=== PATIENT | female | born 1965 | race Caucasian/White ===

== ENCOUNTER 2016-11-11 16:52 | Inpatient (IN) ==
[2016-11-11] MEDS ORDERED: SODIUM CHLORIDE 0.9% 1,000 ML IV STA (17:52)
[2016-11-11] MEDS ORDERED: LABETALOL 20 MG/4 ML SYRINGE IV STA (17:52)
[2016-11-11] MEDS ORDERED: ALUM/MAG/SIMETH/LIDO VISC 1:1 30 ML BOTTLE PO STA (17:52)
[2016-11-11] MEDS ORDERED: ONDANSETRON 4 MG/2 ML VIAL IV STA ×2 (17:52→20:25)
[2016-11-11] MEDS ORDERED: PANTOPRAZOLE 40 MG VIAL IV STA (17:52)
[2016-11-11] MEDS ORDERED: ALUM/MAG/SIMETH/LIDO VISC 1:1 30 ML BOTTLE PO ONE (17:58)
[2016-11-11] MEDS ORDERED: ONDANSETRON 4 MG/2 ML VIAL ONE ×2 (17:58→20:27)
[2016-11-11] MEDS ORDERED: PANTOPRAZOLE 40 MG VIAL IV ONE (17:58)
[2016-11-11] MEDS ORDERED: LABETALOL 20 MG/4 ML SYRINGE IV ONE (17:58)
[2016-11-11 18:01] LABS: Basophils % 0.5 % (0.0-0.8); Eosinophils # 0.1 10*3/uL (0.0-0.87); Eosinophils % 0.7 % (0.00-10.9); Hemoglobin 14.4 GM/DL (12.0-16.0); Immature Granulocytes % 0.2 %; Immature Granulocytes Absolute 0.02 #; Lymphocytes # 2.1 10*3/uL (1.4-4.0); Lymphocytes % 25.3 % (21.3-54.2); Mean Corpuscular HGB Conc 33.5 GM/DL (32-36); Mean Corpuscular Hemoglobin 29 PG (27-34); Mean Platelet Volume 11.1 FL (9.6-12.0); Monocytes # 0.6 10*3/uL (0.11-0.8); Monocytes % 7.4 % (1.7-12.7); Neutrophils # 5.5 10*3/uL (1.4-7.4); Neutrophils % 65.9 % (38.7-73.9); Platelet Count 175 T/CUMM (130-400); Red Blood Count 4.94 MC/CUMM (3.8-5.5); White Blood Count 8.3 T/CUMM (4-12)
[2016-11-11 18:16] LABS: Alanine Aminotransferase 28 U/L (13-56); Alkaline Phosphatase 106 U/L (45-117); Amylase 32 U/L (25-115); Aspartate Amino Transferase 15 U/L (0-37); Blood Urea Nitrogen 14 MG/DL (7-18); Calcium 8.7 MG/DL (8.5-10.1); Glucose 280 MG/DL (74-106); Magnesium 1.7 MG/DL (1.8-2.4); Potassium 4.2 MMOL/L (3.5-5.1); Sodium 136 MMOL/L (136-145); Total Protein 7.5 G/DL (6.4-8.3); Troponin I Only < 0.015 NG/ML (0.00-0.045)
[2016-11-11 18:39] LABS: Apearance,Urine CLOUDY (Clear); Bilirubin,Urine Negative (Negative); Blood, Urine Large mg/dL (Negative); Glucose,Urine (UA) >=500 mg/dL (Negative); Hyaline Casts,Urine 3 /LPF (0-3); Ketones,Urine Negative (Negative); Mucus,Urine Few /LPF (Occasional); Nitrite,Urine Positive (Negative); Protein,Urine 30 MG/DL; RBC,Urine 70 /HPF (0-4); Squamous Epithelial Cell,Urine Occasional /HPF (0-10); Urine Color Yellow (Yellow); Urine Specific Gravity 1.011 (1.001-1.035); Urine Urobilinogen < 2.0 EU/DL (0.2-1.0); WBC,Urine 211 /HPF (0-6)
--- NOTE | 2016-11-11 18:40 | XRay Report ---
Exam: XR chest 2V Date: 11/11/2016 5:53 PM Indication: Abdominal pain Comparison: 05/10/2014 Technical: PA lateral Findings: The heart is normal in size. Minimal degenerative change present thoracic spine. There is ossification of costochondral cartilages. No obvious infiltrate or effusion present. A few tiny calcified nodes in reticular nodular densities in the perihilar regions. Impression: 1. No acute cardiopulmonary pathology 2. Minimal granuloma change suspected PROCEDURE INTERPRETED AT [facility] DEPARTMENT OF RADIOLOGY Final Report Signed by: Dr. Keanu Covarrubias
--- NOTE | 2016-11-11 18:41 | XRay Report ---
Exam: XR abdomen 2V Date: 11/11/2016 5:53 PM Indication: Abdominal pain Comparison: None Technical: Supine and erect imaging Findings: There is prominence of the liver that suggest mild hepatic megaly or prominent Radha's lobe the liver. The spleen is otherwise intact. The kidneys are demonstrated with small calculus lower pole of the left kidney measuring approximately 4.4 mm. Right kidney is unremarkable. Phleboliths are present in the true pelvis. The bony structures are unremarkable. Nonspecific GI pattern is present. Faint calcifications in the pelvis bilaterally injection granuloma left gluteal region. No obvious pneumoperitoneum Impression: 1. Left nephrolithiasis 2. Nonspecific GI pattern PROCEDURE INTERPRETED AT [facility] DEPARTMENT OF RADIOLOGY Final Report Signed by: Dr. Keanu Covarrubias
[2016-11-11] MEDS ORDERED: LEVOFLOXACIN INJ 750 MG in PREMIX 1 EACH IV STA (19:24)
[2016-11-11] MEDS ORDERED: MAGNESIUM SULF RIDER 2 GM in PREMIX 1 EACH IV STA (19:25)
--- NOTE | 2016-11-11 19:30 | Emergency Department Note ---
IBala Kasabria, am scribing for, and in the presence of, Wily Blackwell MD 17:55. Rosalva Romero Charles R, MD, personally performed the services described in this documentation, ascribed by Clarke Mckenna in my presence, and it is both accurate and complete 930 . Arrival - Arrival Chief Complaint: Abdominal / Flank Pain Stated Complaint: sick stomach ED Nursing Triage Note: Pt states that she has been having some nausea and diarrhea onset x 1 week - pt states that she is also having some abd pain Mode of Arrival: Ambulatory Limitations: No Limitations Source: Patient Time Seen by Provider: 11/11/16 17:30 - History of Present Illness HPI Narrative: This is a 51 y/o white female presenting to the ED with c/o excessive diarrhea, abdominal soreness, and vomiting that onset one week ago. She states she has not felt "good" within the past week. It onset with mild abdominal pain and bouts of diarrhea then today the emesis onset after eating a meal. Pt states she has gone to the bathroom a total of twelve times today and each time has been watery with brown/yellow tint. She had cold symptoms last week with cough and drainage and when she vomited today mucus was present. According to the pt, she is not one to get sick and rarely goes to hospital so this is unusual for her. She denies being around anyone who has been sick, eating raw food, or leaving the country. Pt had a subjective fever and took Tylenol but denies chills, hematochezia, dysuria, hematuria, back pain, sore throat, VANESSA, vision change, and diaphoresis. Onset (ago): week(s) (1) Consistency: constant Severity: moderate Date of Last Menstrual Period: hyster Allergies/Adverse Reactions: Allergies Allergy/AdvReac Type Severity Reaction Status Date / Time Penicillins Allergy Unknown/Unable Verified 11/11/16 17:00 to obtain Review of System - Review of System 12 point system: reviewed and no additional remarkable complaints except as stated - Review of System Constitutional: Present: fever (subjective and took OTC Tylenol ). Absent: chills, weakness Eyes: Absent: vision change Head/Ears/Nose/Throat: Absent: earache, nasal drainage, sore throat Respiratory: Absent: cough Cardiovascular: Absent: chest pain, dyspnea on exertion Gastrointestinal: Present: abdominal pain (generalized "queasy" feeling ), nausea, vomiting, diarrhea (x12). Absent: hematochezia Genitourinary female: Absent: dysuria Musculoskeletal: Absent: arm pain, back pain, leg pain, neck pain Skin: Absent: rash Neurological: Absent: headache, weakness, confusion, abnormal gait, vertigo Psychiatric: Absent: anxiety Endocrine: Absent: fatigue Hematological/Lymphatic: Absent: easy bleeding Allergic/Immunologic: Absent: facial swelling Medical,Surgical,& Family Hx - Medical History Endocrine: History of: Diabetes Mellitus (NIDDM), Dyslipidemia - Social History Smoking Status: Never smoker Frequency of Alcohol Use: None Type of Drug Use: None Exam Vital Signs: Vital Signs Temperature 99.2 F 11/11/16 17:00 Pulse Rate 90 11/11/16 19:55 Respiratory Rate 20 11/11/16 19:55 Blood Pressure 155/95 11/11/16 19:55 O2 Sat by Pulse Oximetry 97 11/11/16 19:55 - General General appearance: alert, in no apparent distress - Head Head exam: Present: atraumatic, normocephalic, normal inspection - Eye Eye exam: Present: normal appearance, PERRL, EOMI - ENT ENT exam: Present: mucous membranes dry, TM's normal bilaterally, normal external ear exam. Absent: normal exam, normal oropharynx, mucous membranes moist - Neck Neck exam: Present: normal inspection, full ROM, trachea midline. Absent: tenderness - Chest Chest inspection: Present: normal inspection, symmetric chest wall rise - Respiratory Respiratory exam: Present: normal lung sounds bilaterally - Cardiovascular Cardiovascular exam: Present: normal rhythm, tachycardia, normal heart sounds. Absent: regular rate - Abdominal Exam Abdominal exam: Present: soft, normal bowel sounds. Absent: distention, tenderness - Extremities Exam Extremities exam: Present: normal inspection, full ROM, normal capillary refill. Absent: tenderness, pedal edema, calf tenderness - Back Exam Back exam: Present: normal inspection, full ROM. Absent: tenderness - Neurological Exam Neurological exam: Present: alert, oriented X3, CN II-XII intact, normal gait, reflexes normal - Psychiatric Psychiatric exam: Present: normal affect, normal mood - Skin Skin exam: Present: warm, dry, intact, normal color. Absent: rash, diaphoresis Course - Reevaluation(s) Reevaluation #1: Patient reevaluated still having pain and nausea. Time: 20:44 - Consultations Consultation #1: Hospitalist will admit patient Time: 20:53 Results - Labs CBC & BMP: 11/11/16 17:34 11/11/16 17:34 Lab Results: I have reviewed the patients labs Disposition Clinical Impression: Abdominal pain, UTI (urinary tract infection), Renal calculi, Gastroenteritis Case discussed with: patient Disposition: Still a Patient Condition: Stable Time of Disposition: 20:58
[2016-11-11] MEDS ORDERED: MAGNESIUM SULF RIDER 50 ML IV ONE (19:50)
--- NOTE | 2016-11-11 20:14 | CT Report ---
Exam: CT abdomen pelvis wo con Date: 11/11/2016 7:25 PM Comparison: None Indication: Abdominal pain Total DLP: 960.3 mGy*cm Technical: No oral contrast was administered. Images were obtained from the lung bases to the iliac crest continuation through the pelvis without intravenous contrast with axial sagittal coronal imaging available for review. Dose reduction was performed with decreasing kv and mA and automated exposure Findings: Lung bases: No obvious infiltrates or effusions. Heart is normal in size. Liver and Spleen: The liver is mildly prominent with mild enlargement of the spleen also present. Accessory splenule is present in the splenic hilus. No focal abnormalities on the noncontrast study noted Gallbladder and Pancreas: Unremarkable Adrenals: Unremarkable Kidneys: No obvious stones present in the right kidney. The left kidney reveals a calculus in the posterior aspect of the left kidney measuring 8.1 mm. Tiny calculus present in the distal right ureter with minimal dilatation of the right renal collecting system . Stone measures approximately 3 mm Stomach: Incomplete distended with air-fluid and debris Retroperitoneum: No enlarged lymph nodes. Aorta and IVC: Vascular plaque in the abdominal aorta iliac vessels with mild dolichoectasia. The aorta and IVC without contrast or not otherwise evaluated Bowel and Mesentery: No obvious diverticulosis or diverticulitis or evidence of appendicitis. Moderate fecal debris is present. Pelvis: Bladder: Incompletely distended with fluid Fluid: No free fluid identified. Lymph nodes: No enlarged lymph nodes. Pelvic organs: Uterus is suspected the surgically absent Osseous structures: Degenerative changes present thoracolumbar spine there is compression deformity at T12 with vacuum phenomenon at the T11-T12 level. There is degenerative changes at the L3-4 and L4-5 level with some sclerosis. Impression: 1. Mild hydronephrosis the right renal collecting system with ureteral pelvocaliectasis and small calculus in the distal right ureter measuring approximately 3 mm. 2. Left nephrolithiasis without obstruction 3. Vascular calcinosis aorta iliac vessels 4. 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 Mild hepatosplenomegaly PROCEDURE INTERPRETED AT [facility] DEPARTMENT OF RADIOLOGY Final Report Signed by: Dr. Keanu Covarrubias
[2016-11-11] MEDS ORDERED: LEVOFLOXACIN INJ 150 ML IV ONE (20:27)
--- NOTE | 2016-11-11 21:09 | Hospitalist History & Physical ---
Assessment and Plan (1) UTI (urinary tract infection) Status: Acute Assessment and plan: Continue empiric antibiotics until urine cultures are received. Hydrate for volume depletion. Current Visit: Yes (2) Renal calculi Status: Acute Assessment and plan: There is a known renal calculi in the R ureter; measuring 3mm. Patient is has past medical history of renal calculi in the past and is known to Dr. Cruz. We will consult to assist in the management of this patient. Current Visit: Yes (3) Gastroenteritis Status: Acute Assessment and plan: Will obtain stools of O&P, WBC, and C diff. Will rehydrate and mange symptoms. Current Visit: Yes History of Present Illness Chief complaint: nausea/vomiting/abdominal pain History of present illness: This is a 51 year-old female that presented to the ED this evening with a chief compliant of nausea, vomiting, and diarrhea. She was a medical history of diabetes mellitus, hypertension, and renal calculi. She reports the onset of the presenting compliant on last week. She states that she has not "felt well" over the last couple of days. She reports an increase in symptoms after meal consumption and reports 12 episodes of diarrhea today with mild abdominal pain. She denies recent foreign travel, undercooked food consumption, and recent exposure to any sick individuals. In addition, she reports cold symptoms over the last week and states during an episode of vomiting it looked like mucus. Pertinent positives: nausea, vomiting, diarrhea, abdominal pain, malaise; pertinent negative: headache, vertigo, syncope, changes in vision, melena, or dysuria. At the time of ED presentation, she was found to be grossly hypertensive at 180/ 115. She was given Trandate and her blood pressure improved for a while.Her blood pressures became gradually elevated; for which at that time she was given Hydralizine. CT scan of the abdomen revealed 3mm renal calculi in the distal ureter. Chest radiograph was unremarkable. Urinalysis with culture was obtained ; gross abnormalities were noted and empiric antibiotics were initiated. After discussion with Dr. Blackwell it was decided that she would be admitted under the hospitalist services for continuation of care. We will consult Dr. Valerio; patient is known to him to assist in the management of her care during the clinical encounter. Allergies Allergy/AdvReac Type Severity Reaction Status Date / Time Penicillins Allergy Unknown/Unable Verified 11/11/16 17:00 to obtain Medical,Surgical,& Family Hx - Medical History Endocrine: History of: Diabetes Mellitus (NIDDM), Dyslipidemia Renal: History of: Renal Problems (Kidney stones in the past) - Social History Smoking Status: Never smoker Have you smoked in the last 12 months: No Frequency of Alcohol Use: None Type of Drug Use: None Marital Status: Lives With:: Spouse Functional capacity: independent ambulation Exam - Constitutional Vitals: Period Temp Pulse Resp BP Sys/Dolan Pulse Ox Last 24 Hr 99.2 F-99.2 F 82-105 18-20 121-180/85-123 95-98 General appearance: normal weight, no acute distress - Head Head exam: Present: normal inspection, normocephalic, atraumatic - Eye Eye exam: Present: EOMI. 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 Absent: lymphadenopathy, meningismus, tenderness, thyromegaly - Respiratory Respiratory exam: Present: clear to auscultation bilaterally. Absent: rales, rhonchi, stridor, wheezes - Cardiovascular Cardiovascular exam: Present: bradycardia, regular rate and rhythm. Absent: carotid bruit, diastolic murmur, gallop, JVD, rubs, tachycardia - GI/Abdominal GI/Abdominal exam: Present: normal bowel sounds, tenderness, soft - Extremities Exam Extremities exam: Present: normal inspection, full ROM. Absent: edema - Back Exam Back exam: Present: normal inspection, other - Neurological Exam Neurological exam: Present: alert, oriented X3, CN II-XII intact - Psychiatric Psychiatric exam: Present: normal affect, normal mood - Skin Skin exam: Present: normal color, warm, dry Results - Labs CBC & BMP: 11/11/16 17:34 11/11/16 17:34 Lab Results: I have reviewed the past 24 hour labs Quality Measures - VTE Deep Vein Thrombosis/Pulmonary Embolism Present on Admission: No
[2016-11-11] MEDS ORDERED: PROMETHAZINE 25 MG/1 ML VIAL ONE (21:11)
[2016-11-11] MEDS ORDERED: hydrALAZINE 20 MG/1 ML VIAL ONE (21:14)
[2016-11-11] MEDS ORDERED: hydrALAZINE 20 MG/1 ML VIAL IV STA (21:16)
[2016-11-11] MEDS ORDERED: PROMETHAZINE 25 MG/1 ML VIAL IM STA (21:16)
[2016-11-11] MEDS ORDERED: cloNIDine 0.1 MG TABLET ONE (22:36)
[2016-11-11] MEDS ORDERED: ACETAMINOPHEN 500 MG TABLET ONE (22:37)
[2016-11-11] MEDS ORDERED: cloNIDine 0.1 MG TABLET PO ONE (22:39)
[2016-11-11] MEDS ORDERED: ACETAMINOPHEN 500 MG TABLET PO STA (22:39)
[2016-11-11] MEDS ORDERED: hydrALAZINE 20 MG/1 ML VIAL IV PRN (22:50)
[2016-11-11] MEDS ORDERED: cloNIDine 0.1 MG TABLET PO PRN (22:50)
[2016-11-11] MEDS: LACTATED RINGERS 1,000 ML IV SCH (23:26)
[2016-11-11] MEDS: MORPHINE 2 MG/1 ML SYRINGE IV PRN (23:27)
[2016-11-11] MEDS: ENOXAPARIN 40 MG/0.4 ML SYRINGE SUBCUT SCH (23:27)
[2016-11-12] MEDS: MORPHINE 2 MG/1 ML SYRINGE IV PRN ×3 (04:34→21:11)
[2016-11-12 05:45] LABS: Basophils % 0.4 % (0.0-0.8); Eosinophils # 0.1 10*3/uL (0.0-0.87); Eosinophils % 1.7 % (0.00-10.9); Hematocrit 38.5 VOL% (35.7-47.0); Hemoglobin 12.2 GM/DL (12.0-16.0); Immature Granulocytes % 0.3 %; Immature Granulocytes Absolute 0.02 #; Lymphocytes # 2.4 10*3/uL (1.4-4.0); Lymphocytes % 31.3 % (21.3-54.2); Mean Corpuscular HGB Conc 31.7 GM/DL (32-36); Mean Corpuscular Hemoglobin 28 PG (27-34); Mean Corpuscular Volume 89.7 FL (87-102); Mean Platelet Volume 11.1 FL (9.6-12.0); Monocytes # 0.7 10*3/uL (0.11-0.8); Monocytes % 8.8 % (1.7-12.7); Neutrophils # 4.4 10*3/uL (1.4-7.4); Neutrophils % 57.5 % (38.7-73.9); Platelet Count 137 T/CUMM (130-400); Red Blood Count 4.29 MC/CUMM (3.8-5.5); Red Cell Distribution Width 13.2 % (9.3-17.3); White Blood Count 7.7 T/CUMM (4-12)
[2016-11-12 06:24] LABS: Albumin 3.2 G/DL (3.4-5.0); Bilirubin,Total 0.7 MG/DL (0.2-1.0); Calcium 8.1 MG/DL (8.5-10.1); Magnesium 2.1 MG/DL (1.8-2.4); Osmolality,Calculated 286.3 MOS/KG (273-304); Potassium 3.6 MMOL/L (3.5-5.1); Risk Ratio 5.57; Thyroid Stimulating Hormone 2.16 uIU/ml (0.358-3.74); VLDL CHOLESTEROL 44.2 MG/DL
--- NOTE | 2016-11-12 07:08 | EKG Report ---
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
[2016-11-12] MEDS: ONDANSETRON 4 MG/2 ML VIAL IV PRN (08:40)
[2016-11-12] MEDS: LACTATED RINGERS 1,000 ML IV SCH ×2 (08:41→17:22)
[2016-11-12] MEDS ORDERED: INSULIN REGULAR 100 UNIT/ML ONE (10:17)
[2016-11-12] MEDS: HYDROmorphone 2 MG/1 ML VIAL IV PRN ×3 (10:32→17:22)
[2016-11-12] MEDS: INSULIN REGULAR 100 UNIT/ML SUBCUT SCH ×3 (10:33→23:06)
[2016-11-12] MEDS ORDERED: BISACODYL 5 MG TABLET PO PRN (10:54)
--- NOTE | 2016-11-12 11:25 | Urology Consultation ---
History of Present Illness - Data of Consult Consult date: 11/12/16 - Consult Narrative History of present illness: Ms. Kirby is a 51 year old female This 51-year-old white female has a 2-3 day history of lower abdominal and low back pain that was nonlocalizing. She was seen in the emergency room and was found to have a 3 mm distal ureteral stone and evidence of urinary tract infection. Her creatinine was normal and she initially had a low-grade temperature that decreased to normal with IV antibiotics. She still complaining of some pain nausea and malaise she has a past history of stones. Going recommend that we continue IV antibiotics and have the patient strain the urine abdomen and Flomax. Whenever the patient's pain can be controlled with oral pain medication she can be discharged and I have given her a prescription for Dilaudid Flomax and Phenergan in the event that she is able to be discharged over the weekend CC: Nisreen Malhotra MD - Home Medications and Allergies Home Medications: Home Medications Medication Instructions Recorded Confirmed Type Cyclobenzaprine [Flexeril] 10 mg PO Q4-6H PRN 11/12/16 11/12/16 History Metformin HCl [Glucophage] 1,000 mg PO BID W/MEALS 11/12/16 11/12/16 History Allergies/Adverse Reactions: Allergies Allergy/AdvReac Type Severity Reaction Status Date / Time Penicillins Allergy Unknown/Unable Verified 11/11/16 17:00 to obtain Exam - Constitutional Vitals: Period Temp Pulse Resp BP Sys/Dolan Pulse Ox Last 24 Hr 97.0 F-100.2 F 84-91 16-20 128-196/72-121 95-100 Results - Labs CBC & BMP: 11/12/16 05:27 11/12/16 05:27
[2016-11-12] MEDS: TAMSULOSIN 0.4 MG CAPSULE PO SCH (11:58)
--- NOTE | 2016-11-12 16:38 | Hospitalist Progress Note ---
Assessment and Plan - Time spent with patient Time spent with patient: Greater than 30 minutes (1) Renal calculi Status: Acute Assessment and plan: Continue current management. Current Visit: Yes (2) UTI (urinary tract infection) Status: Acute Assessment and plan: Continue antibiotics. Awaiting culture results. Current Visit: Yes Hospitalist: Subjective Interval history: She states she does not feel well. T-max 100.2. 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 Absent: rhonchi, wheezes - Cardiovascular Cardiovascular exam: Present: regular rate and rhythm. Absent: gallop, rubs, systolic murmur - GI/Abdominal GI/Abdominal exam: Present: normal bowel sounds, soft. Absent: distended, firm , guarding, tenderness, rebound - Extremities Exam Extremities exam: Present: normal inspection. Absent: calf tenderness, edema Results - Labs CBC & BMP: 11/12/16 05:27 11/12/16 05:27 Lab Results: I have reviewed the past 24 hour labs Quality Measures - VTE Deep Vein Thrombosis/Pulmonary Embolism Present on Admission: No - Stroke Symptom Onset Unknown: No Specialty Discharge - Follow Up or Referrals Follow up with: Yogesh Cruz MD [Physician] - 11/30/16 9:45 am
[2016-11-13] MEDS: MORPHINE 2 MG/1 ML SYRINGE IV PRN (01:08)
[2016-11-13] MEDS: ENOXAPARIN 40 MG/0.4 ML SYRINGE SUBCUT SCH ×2 (01:08→23:25)
[2016-11-13] MEDS: LACTATED RINGERS 1,000 ML IV SCH ×4 (01:10→23:25)
[2016-11-13] MEDS: HYDROmorphone 2 MG/1 ML VIAL IV PRN ×6 (04:03→23:29)
[2016-11-13 05:18] LABS: Basophils % 0.4 % (0.0-0.8); Eosinophils # 0.1 10*3/uL (0.0-0.87); Eosinophils % 1.7 % (0.00-10.9); Hematocrit 35.6 VOL% (35.7-47.0); Hemoglobin 11.8 GM/DL (12.0-16.0); Immature Granulocytes % 0.3 %; Immature Granulocytes Absolute 0.02 #; Lymphocytes # 2.8 10*3/uL (1.4-4.0); Lymphocytes % 38.5 % (21.3-54.2); Mean Corpuscular HGB Conc 33.1 GM/DL (32-36); Mean Corpuscular Hemoglobin 29 PG (27-34); Mean Corpuscular Volume 86.6 FL (87-102); Mean Platelet Volume 11.8 FL (9.6-12.0); Monocytes # 0.5 10*3/uL (0.11-0.8); Monocytes % 6.3 % (1.7-12.7); Neutrophils # 3.8 10*3/uL (1.4-7.4); Neutrophils % 52.8 % (38.7-73.9); Platelet Count 148 T/CUMM (130-400); Red Blood Count 4.11 MC/CUMM (3.8-5.5); White Blood Count 7.2 T/CUMM (4-12)
[2016-11-13 05:48] LABS: Calcium 8.1 MG/DL (8.5-10.1); Osmolality,Calculated 280.5 MOS/KG (273-304); Potassium 3.8 MMOL/L (3.5-5.1)
--- NOTE | 2016-11-13 08:09 | Urology Progress Note ---
Urology - PN: Subj Interval history: The patient still has pain and is able to eat. I will recommend that she try oral pain medication today. She has a positive urine culture with gram- negative rods and is currently on Levaquin Exam - Constitutional Vitals: Period Temp Pulse Resp BP Sys/Dolan Pulse Ox Last 24 Hr 97.2 F-99.8 F 87-106 18-20 120-158/65-82 90-95 Results - Labs CBC & BMP: 11/13/16 04:26 11/13/16 04:26 Specialty Discharge - Follow Up or Referrals Follow up with: Yogesh Cruz MD [Physician] - 11/30/16 9:45 am
[2016-11-13] MEDS: INSULIN REGULAR 100 UNIT/ML SUBCUT SCH ×4 (08:28→20:49)
[2016-11-13] MEDS: TAMSULOSIN 0.4 MG CAPSULE PO SCH (08:30)
[2016-11-13] MEDS: BISACODYL 5 MG TABLET PO SCH (08:30)
[2016-11-13] MEDS: LEVOFLOXACIN INJ 750 MG in PREMIX 1 EACH IV SCH (09:22)
--- NOTE | 2016-11-13 11:08 | Hospitalist Progress Note ---
Assessment and Plan - Time spent with patient Time spent with patient: Greater than 30 minutes (1) Renal calculi Status: Acute Assessment and plan: Continue current management. Current Visit: Yes (2) UTI (urinary tract infection) Status: Acute Assessment and plan: Continue antibiotics. Awaiting culture results. Current Visit: Yes Hospitalist: Subjective Interval history: Patient feels a litter better today but had a low grade fever of 99.8. 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 Absent: rhonchi, wheezes - Cardiovascular Cardiovascular exam: Present: regular rate and rhythm. Absent: gallop, rubs, systolic murmur - GI/Abdominal GI/Abdominal exam: Present: normal bowel sounds, soft. Absent: distended, firm , guarding, tenderness, rebound - Extremities Exam Extremities exam: Present: normal inspection. Absent: calf tenderness, edema Results - Labs CBC & BMP: 11/13/16 04:26 11/13/16 04:26 Lab Results: I have reviewed the past 24 hour labs Quality Measures - VTE Deep Vein Thrombosis/Pulmonary Embolism Present on Admission: No - Stroke Symptom Onset Unknown: No Specialty Discharge - Follow Up or Referrals Follow up with: Yogesh Cruz MD [Physician] - 11/30/16 9:45 am
[2016-11-13] MEDS: HYDROmorphone 2 MG TABLET PO PRN (14:44)
[2016-11-14] MEDS: HYDROmorphone 2 MG/1 ML VIAL IV PRN ×2 (04:24→08:52)
[2016-11-14] MEDS: LACTATED RINGERS 1,000 ML IV SCH ×2 (06:11→17:07)
[2016-11-14 06:42] LABS: Basophils % 0.3 % (0.0-0.8); Eosinophils # 0.2 10*3/uL (0.0-0.87); Hematocrit 35.8 VOL% (35.7-47.0); Hemoglobin 11.9 GM/DL (12.0-16.0); Immature Granulocytes % 0.3 %; Immature Granulocytes Absolute 0.02 #; Lymphocytes # 2.1 10*3/uL (1.4-4.0); Lymphocytes % 35.9 % (21.3-54.2); Mean Corpuscular HGB Conc 33.2 GM/DL (32-36); Mean Corpuscular Hemoglobin 29 PG (27-34); Mean Corpuscular Volume 86.5 FL (87-102); Mean Platelet Volume 11.8 FL (9.6-12.0); Monocytes # 0.4 10*3/uL (0.11-0.8); Monocytes % 7.3 % (1.7-12.7); Neutrophils # 3.1 10*3/uL (1.4-7.4); Neutrophils % 53.2 % (38.7-73.9); Platelet Count 133 T/CUMM (130-400); Red Blood Count 4.14 MC/CUMM (3.8-5.5); Red Cell Distribution Width 12.9 % (9.3-17.3); White Blood Count 5.8 T/CUMM (4-12)
[2016-11-14 07:24] LABS: Calcium 7.9 MG/DL (8.5-10.1); Osmolality,Calculated 283.4 MOS/KG (273-304); Potassium 3.7 MMOL/L (3.5-5.1)
[2016-11-14] MEDS: INSULIN REGULAR 100 UNIT/ML SUBCUT SCH ×4 (08:53→22:06)
[2016-11-14] MEDS: TAMSULOSIN 0.4 MG CAPSULE PO SCH (08:54)
[2016-11-14] MEDS: LEVOFLOXACIN INJ 750 MG in PREMIX 1 EACH IV SCH (08:54)
[2016-11-14] MEDS: BISACODYL 5 MG TABLET PO SCH (10:08)
--- NOTE | 2016-11-14 10:16 | Urology Progress Note ---
Urology - PN: Subj Interval history: Urine culture shows E. coli sensitive to Levaquin. The patient's pain was controlled with oral pain medication. It is okay with me to discharge the patient as needed Exam - Constitutional Vitals: Period Temp Pulse Resp BP Sys/Dolan Pulse Ox Last 24 Hr 96.8 F-98.5 F 82-96 16-18 124-150/70-79 89-94 Results - Labs CBC & BMP: 11/14/16 05:14 11/14/16 05:14 Specialty Discharge - Follow Up or Referrals Follow up with: Yogesh Cruz MD [Physician] - 11/30/16 9:45 am
--- NOTE | 2016-11-14 12:02 | Hospitalist Progress Note ---
Assessment and Plan - Time spent with patient Time spent with patient: Greater than 30 minutes (1) Renal calculi Status: Acute Assessment and plan: Continue current management. Current Visit: Yes (2) UTI (urinary tract infection) Status: Acute Assessment and plan: Continue antibiotics. E Coli, bravo sensitive. Current Visit: Yes Hospitalist: Subjective Interval history: No complaints, no overnight events. 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 Absent: rhonchi, wheezes - Cardiovascular Cardiovascular exam: Present: regular rate and rhythm. Absent: gallop, rubs, systolic murmur - GI/Abdominal GI/Abdominal exam: Present: normal bowel sounds, soft. Absent: distended, firm , guarding, tenderness, rebound - Extremities Exam Extremities exam: Present: normal inspection. Absent: calf tenderness, edema Results - Labs CBC & BMP: 11/14/16 05:14 11/14/16 05:14 Lab Results: I have reviewed the past 24 hour labs Quality Measures - VTE Deep Vein Thrombosis/Pulmonary Embolism Present on Admission: No - Stroke Symptom Onset Unknown: No Specialty Discharge - Follow Up or Referrals Follow up with: Yogesh Cruz MD [Physician] - 11/30/16 9:45 am
[2016-11-14] MEDS: HYDROmorphone 2 MG TABLET PO PRN ×3 (13:02→21:16)
[2016-11-14] MEDS: ONDANSETRON 4 MG/2 ML VIAL IV PRN (13:03)
[2016-11-15] MEDS: LACTATED RINGERS 1,000 ML IV SCH (00:19)
[2016-11-15] MEDS: ENOXAPARIN 40 MG/0.4 ML SYRINGE SUBCUT SCH (00:19)
[2016-11-15] MEDS: HYDROmorphone 2 MG TABLET PO PRN (03:35)
--- NOTE | 2016-11-15 07:46 | Urology Progress Note ---
Urology - PN: Subj Interval history: Patient is doing well. I have given her prescription for Dilaudid and Flomax. She will need antibiotics. I will see her in the office in 2 weeks Exam - Constitutional Vitals: Period Temp Pulse Resp BP Sys/Dolan Pulse Ox Last 24 Hr 97.2 F-98.5 F 77-93 16-20 129-170/65-91 89-99 Results - Labs CBC & BMP: 11/14/16 05:14 11/14/16 05:14 Specialty Discharge - Follow Up or Referrals Follow up with: Yogesh Cruz MD [Physician] - 11/30/16 9:45 am
[2016-11-15] MEDS: TAMSULOSIN 0.4 MG CAPSULE PO SCH (08:33)
[2016-11-15] MEDS: INSULIN REGULAR 100 UNIT/ML SUBCUT SCH (08:33)
[2016-11-15] MEDS: BISACODYL 5 MG TABLET PO SCH (08:33)
[2016-11-15] MEDS: LEVOFLOXACIN INJ 750 MG in PREMIX 1 EACH IV SCH (08:34)
[2016-11-15 09:20] VITALS: BP 152/81
[2016-11-15] MEDS ORDERED: FUROSEMIDE 40 MG/4 ML VIAL IV ONE (09:29)
--- NOTE | 2016-11-15 09:35 | Discharge Summary ---
Hospital Course - Hospital Course Hospital Course: Ms Mirta was admitted for evaluation of nausea, vomiting, and abdominal pain. She was found to have a UTI with a CT scan revealing 3mm distal uretal stone. She was started on IV antibiotics. Urology was consulted. Urine culture returned E Coli bravo sensitive. She will continue her medications as an outpatient to include flomax, levaquin, dilaudid and lasix prn. By discharge, she had met maximum benefit of hospitalization. - Time spent with patient Time with patient DS: Greater than 30 minutes Diagnosis - Discharge Diagnosis (1) Renal calculi Status: Acute (2) UTI (urinary tract infection) Status: Acute Specialty Discharge - Follow Up or Referrals Follow up with: Yogesh Cruz MD [Physician] - 11/30/16 9:45 am Discharge Plan - Discharge Data Disposition: Disch To Home/Self Care Condition at Discharge: Stable Discharge Diet: advance to your usual diet Activity: resume usual activities as tolerated - Discharge Medications New Furosemide Tab [Lasix Tab] 20 mg PO BID PRN #30 tablet PRN Reason: Edema HYDROmorphone TAB [Dilaudid Tab] 4 mg PO Q4H PRN #0 tablet PRN Reason: Pain Severe (8-10) Levofloxacin Tab [Levaquin Tab] 750 mg PO DAILY #12 tablet Tamsulosin [Flomax] 0.4 mg PO DAILY capsule Continue Metformin HCl [Glucophage] 1,000 mg PO BID W/MEALS Cyclobenzaprine [Flexeril] 10 mg PO Q4-6H PRN PRN Reason: Muscle Pain - Follow Up or Referral Follow Up: Yogesh Cruz MD [Physician] - 11/30/16 9:45 am - Forms/Instructions Exam - Constitutional Vitals: Period Temp Pulse Resp BP Sys/Dolan Pulse Ox Last 24 Hr 97.2 F-97.8 F 77-93 18-20 129-170/65-91 89-99 General appearance: normal weight, no acute distress - Head Head exam: Present: normal inspection, normocephalic, atraumatic - Eye Eye exam: Present: EOMI Pupils: Present: DOT - ENT ENT exam: Present: normal exam - Neck Neck exam: Present: normal inspection - Respiratory Respiratory exam: Present: clear to auscultation bilaterally. Absent: accessory muscle use, prolonged expiratory phase, wheezes - Cardiovascular Cardiovascular exam: Present: regular rate and rhythm. Absent: bradycardia, irregular rhythm, systolic murmur - GI/Abdominal GI/Abdominal exam: Present: normal bowel sounds. Absent: ascites, distended, firm - Extremities Exam Extremities exam: Present: normal inspection Discharge Results Labs on day of discharge: Labs from last 24 hours 11/15/16 11/14/16 11/14/16 07:18 15:43 12:13 POC Glucose 175 H 204 H 179 H DS: Provider Date of admission: 11/11/16 20:52 Primary care physician: . No PCP Attending physician on admission: Nisreen Malhotra MD Consults: 11/11/16 23:05 Consult to Physician [CONS] Routine Comment: Consulting Provider: Yogesh Cruz When should Consulting Provider be notified: In am Person Notified: Corinne Date Notified: 11/12/16 Time Notified: 09:59 Discharging clinician: Nisreen Malhotra MD Expected date of discharge: 11/15/16
== END 2016-11-15 11:15 | disposition home or self-care (01) | DRG 690 ==
LOC: N.ED 16:52 → N.EDINP 20:52 → N.5E 21:43
PROVIDERS: ADMIT Internal Medicine; ATTEND Internal Medicine

== ENCOUNTER 2017-05-24 17:34 | Inpatient (IN) ==
[2017-05-24 19:01] LABS: Apearance,Urine Slightly Hazy (Clear); Bacteria,Urine Moderate /HPF (Few); Bilirubin,Urine Negative (Negative); Blood, Urine Small mg/dL (Negative); Glucose,Urine (UA) >=500 mg/dL (Negative); Ketones,Urine 20 mg/dL (Negative); Mucus,Urine Occasional /LPF (Occasional); Nitrite,Urine Positive (Negative); Protein,Urine Negative; RBC,Urine 3 /HPF (0-4); Squamous Epithelial Cell,Urine Occasional /HPF (0-10); Urine Color Yellow (Yellow); Urine Specific Gravity 1.026 (1.001-1.035); WBC,Urine 71 /HPF (0-6)
[2017-05-24] MEDS ORDERED: SODIUM CHLORIDE 0.9% 1,000 ML IV STA (19:13)
[2017-05-24] MEDS ORDERED: CIPROFLOXACIN INJ 400 MG in PREMIX 1 EACH IV STA (19:14)
[2017-05-24 19:45] LABS: Basophils % 0.4 % (0.0-0.8); Eosinophils % 0.2 % (0.00-10.9); Hemoglobin 14.1 GM/DL (12.0-16.0); Immature Granulocytes % 0.6 %; Immature Granulocytes Absolute 0.06 #; Lymphocytes % 19.2 % (21.3-54.2); Mean Corpuscular HGB Conc 34.4 GM/DL (32-36); Mean Corpuscular Hemoglobin 29 PG (27-34); Mean Corpuscular Volume 85.4 FL (87-102); Mean Platelet Volume 11.4 FL (9.6-12.0); Monocytes # 0.8 10*3/uL (0.11-0.8); Monocytes % 7.8 % (1.7-12.7); Neutrophils # 7.5 10*3/uL (1.4-7.4); Neutrophils % 71.8 % (38.7-73.9); Platelet Count 153 T/CUMM (130-400); Red Cell Distribution Width 12.4 % (9.3-17.3); White Blood Count 10.5 T/CUMM (4-12)
[2017-05-24] MEDS ORDERED: CIPROFLOXACIN 400 MG/200 ML PREMIX IV ONE (19:53)
[2017-05-24] MEDS ORDERED: ACETAMINOPHEN 500 MG TABLET PO STA (20:02)
[2017-05-24 20:03] LABS: Calcium 8.8 MG/DL (8.5-10.1); Osmolality,Calculated 275.7 MOS/KG (273-304); Potassium 3.9 MMOL/L (3.5-5.1)
[2017-05-24] MEDS ORDERED: IBUPROFEN 800 MG TABLET ONE (20:03)
[2017-05-24] MEDS ORDERED: ACETAMINOPHEN 500 MG TABLET ONE (20:03)
[2017-05-24] MEDS ORDERED: IBUPROFEN 800 MG TABLET PO STA (20:03)
[2017-05-24] MEDS ORDERED: ONDANSETRON 4 MG/2 ML VIAL IV STA (20:19)
[2017-05-24] MEDS ORDERED: ONDANSETRON 4 MG/2 ML VIAL ONE (20:22)
[2017-05-25] MEDS ORDERED: GLUCAGON 1 MG VIAL IM PRN ×2 (00:23→18:04)
[2017-05-25] MEDS ORDERED: CYCLOBENZAPRINE 10 MG TABLET PO PRN (00:23)
[2017-05-25] MEDS ORDERED: DEXTROSE 50% 25 GM/50 ML VIAL IV PRN ×2 (00:23→18:04)
[2017-05-25] MEDS ORDERED: MORPHINE 2 MG/1 ML SYRINGE IV PRN (00:23)
[2017-05-25] MEDS: SODIUM CHLORIDE 0.45% 1,000 ML IV SCH ×3 (01:44→17:54)
[2017-05-25] MEDS: ZALEPLON 5 MG CAPSULE PO PRN ×2 (01:51→21:15)
[2017-05-25] MEDS: ONDANSETRON 4 MG/2 ML VIAL IV PRN ×4 (01:52→20:08)
[2017-05-25 02:55] LABS: Basophils % 0.2 % (0.0-0.8); Eosinophils # 0.1 10*3/uL (0.0-0.87); Hematocrit 35.8 VOL% (35.7-47.0); Immature Granulocytes % 0.4 %; Immature Granulocytes Absolute 0.04 #; Lymphocytes % 21.3 % (21.3-54.2); Mean Corpuscular HGB Conc 33.5 GM/DL (32-36); Mean Corpuscular Hemoglobin 29 PG (27-34); Mean Corpuscular Volume 86.1 FL (87-102); Mean Platelet Volume 11.3 FL (9.6-12.0); Monocytes # 0.9 10*3/uL (0.11-0.8); Monocytes % 9.8 % (1.7-12.7); Neutrophils # 6.3 10*3/uL (1.4-7.4); Neutrophils % 67.3 % (38.7-73.9); Platelet Count 123 T/CUMM (130-400); Red Blood Count 4.16 MC/CUMM (3.8-5.5); Red Cell Distribution Width 12.5 % (9.3-17.3); White Blood Count 9.4 T/CUMM (4-12)
[2017-05-25 03:32] LABS: Albumin 2.7 G/DL (3.4-5.0); Bilirubin,Total 0.8 MG/DL (0.2-1.0); Calcium 8.3 MG/DL (8.5-10.1); Osmolality,Calculated 286.2 MOS/KG (273-304); Potassium 3.4 MMOL/L (3.5-5.1); Total Protein 5.7 G/DL (6.4-8.3)
[2017-05-25 03:40] LABS: Risk Ratio 8.11; Thyroid Stimulating Hormone 1.4 uIU/ml (0.358-3.74); VLDL CHOLESTEROL 32.4 MG/DL
[2017-05-25 04:43] LABS: Platelet Estimate Adequate
[2017-05-25] MEDS: ENOXAPARIN 40 MG/0.4 ML SYRINGE SUBCUT SCH (08:52)
[2017-05-25] MEDS: INSULIN REGULAR 100 UNIT/ML SUBCUT SCH ×4 (08:52→21:15)
[2017-05-25] MEDS: PANTOPRAZOLE 40 MG TABLET PO SCH (08:53)
[2017-05-25] MEDS: LEVOFLOXACIN INJ 500 MG in PREMIX 1 EACH IV SCH (08:53)
[2017-05-25] MEDS: MORPHINE 2 MG/1 ML SYRINGE IV PRN ×2 (11:46→14:46)
[2017-05-25] MEDS ORDERED: MEPERIDINE 50 MG/1 ML VIAL IM PRN (17:33)
[2017-05-25] MEDS: oxyCODONE/ACETAMINOPHEN 5-325 MG TABLET PO PRN (17:56)
[2017-05-25] MEDS ORDERED: INSULIN GLARGINE 100 UNIT/ML SUBCUT SCH (21:00)
[2017-05-25] MEDS: INSULIN GLARGINE 100 UNIT/ML SUBCUT SCH (21:14)
[2017-05-26] MEDS: oxyCODONE/ACETAMINOPHEN 5-325 MG TABLET PO PRN ×3 (00:31→19:21)
[2017-05-26] MEDS: SODIUM CHLORIDE 0.45% 1,000 ML IV SCH ×5 (03:38→23:03)
[2017-05-26 07:25] LABS: Basophils % 0.3 % (0.0-0.8); Eosinophils # 0.1 10*3/uL (0.0-0.87); Eosinophils % 1.4 % (0.00-10.9); Hematocrit 37.9 VOL% (35.7-47.0); Hemoglobin 12.8 GM/DL (12.0-16.0); Immature Granulocytes % 0.9 %; Immature Granulocytes Absolute 0.06 #; Lymphocytes # 1.6 10*3/uL (1.4-4.0); Lymphocytes % 25.2 % (21.3-54.2); Mean Corpuscular HGB Conc 33.8 GM/DL (32-36); Mean Corpuscular Hemoglobin 29 PG (27-34); Mean Corpuscular Volume 86.5 FL (87-102); Mean Platelet Volume 11.3 FL (9.6-12.0); Monocytes # 0.6 10*3/uL (0.11-0.8); Monocytes % 8.7 % (1.7-12.7); Neutrophils # 4.1 10*3/uL (1.4-7.4); Neutrophils % 63.5 % (38.7-73.9); Platelet Count 141 T/CUMM (130-400); Red Blood Count 4.38 MC/CUMM (3.8-5.5); Red Cell Distribution Width 12.2 % (9.3-17.3); White Blood Count 6.4 T/CUMM (4-12)
[2017-05-26 08:09] LABS: Atypical Lymphocytes Few; Hypochromasia 1+; Lymphocytes 28 % (20-55); Platelet Estimate Adequate; Segmented Neutrophils 67 % (50-85); Total Cells Counted 100
[2017-05-26 08:12] LABS: Calcium 8.2 MG/DL (8.5-10.1); Magnesium 1.9 MG/DL (1.8-2.4); Osmolality,Calculated 280.4 MOS/KG (273-304); Potassium 3.7 MMOL/L (3.5-5.1)
[2017-05-26] MEDS: PANTOPRAZOLE 40 MG TABLET PO SCH (08:40)
[2017-05-26] MEDS: LEVOFLOXACIN INJ 500 MG in PREMIX 1 EACH IV SCH (08:41)
[2017-05-26] MEDS: INSULIN REGULAR 100 UNIT/ML SUBCUT SCH ×4 (08:41→20:46)
[2017-05-26] MEDS: ENOXAPARIN 40 MG/0.4 ML SYRINGE SUBCUT SCH (08:41)
[2017-05-26] MEDS: ERTAPENEM 1,000 MG in SODIUM CHLORIDE 0.9% 50 ML IV SCH (18:28)
[2017-05-26] MEDS: ONDANSETRON 4 MG/2 ML VIAL IV PRN (18:29)
[2017-05-26] MEDS: ZALEPLON 5 MG CAPSULE PO PRN (20:45)
[2017-05-26] MEDS: INSULIN GLARGINE 100 UNIT/ML SUBCUT SCH (20:45)
[2017-05-27] MEDS: oxyCODONE/ACETAMINOPHEN 5-325 MG TABLET PO PRN ×5 (05:39→23:16)
[2017-05-27] MEDS: SODIUM CHLORIDE 0.45% 1,000 ML IV SCH ×3 (06:38→23:14)
[2017-05-27] MEDS: ENOXAPARIN 40 MG/0.4 ML SYRINGE SUBCUT SCH (09:06)
[2017-05-27] MEDS: PANTOPRAZOLE 40 MG TABLET PO SCH (09:06)
[2017-05-27] MEDS: ONDANSETRON 4 MG/2 ML VIAL IV PRN ×3 (09:13→18:05)
[2017-05-27] MEDS: INSULIN REGULAR 100 UNIT/ML SUBCUT SCH ×4 (09:33→20:46)
[2017-05-27] MEDS: ERTAPENEM 1,000 MG in SODIUM CHLORIDE 0.9% 50 ML IV SCH (16:10)
[2017-05-27] MEDS: ZALEPLON 5 MG CAPSULE PO PRN (20:45)
[2017-05-27] MEDS: INSULIN GLARGINE 100 UNIT/ML SUBCUT SCH (20:46)
[2017-05-28] MEDS: INSULIN REGULAR 100 UNIT/ML SUBCUT SCH ×4 (08:52→21:10)
[2017-05-28] MEDS: ENOXAPARIN 40 MG/0.4 ML SYRINGE SUBCUT SCH (08:52)
[2017-05-28] MEDS: PANTOPRAZOLE 40 MG TABLET PO SCH (08:52)
[2017-05-28] MEDS: SODIUM CHLORIDE 0.45% 1,000 ML IV SCH ×3 (08:53→23:52)
[2017-05-28] MEDS: ONDANSETRON 4 MG/2 ML VIAL IV PRN ×3 (11:25→22:19)
[2017-05-28] MEDS: oxyCODONE/ACETAMINOPHEN 5-325 MG TABLET PO PRN ×3 (11:25→22:19)
[2017-05-28] MEDS ORDERED: DOCUSATE SODIUM 100 MG CAPSULE PO PRN (12:09)
[2017-05-28] MEDS: ERTAPENEM 1,000 MG in SODIUM CHLORIDE 0.9% 50 ML IV SCH (15:18)
[2017-05-28] MEDS: ZALEPLON 5 MG CAPSULE PO PRN ×2 (21:08→22:19)
[2017-05-28] MEDS: DOCUSATE SODIUM 100 MG CAPSULE PO SCH (21:08)
[2017-05-28] MEDS: INSULIN GLARGINE 100 UNIT/ML SUBCUT SCH (21:10)
[2017-05-29 05:21] LABS: Basophils % 0.4 % (0.0-0.8); Eosinophils # 0.1 10*3/uL (0.0-0.87); Eosinophils % 1.9 % (0.00-10.9); Hematocrit 35.9 VOL% (35.7-47.0); Hemoglobin 12.2 GM/DL (12.0-16.0); Immature Granulocytes % 0.7 %; Immature Granulocytes Absolute 0.04 #; Lymphocytes # 1.7 10*3/uL (1.4-4.0); Mean Corpuscular Hemoglobin 29 PG (27-34); Mean Corpuscular Volume 86.3 FL (87-102); Mean Platelet Volume 10.6 FL (9.6-12.0); Monocytes # 0.4 10*3/uL (0.11-0.8); Monocytes % 7.2 % (1.7-12.7); Neutrophils # 3.4 10*3/uL (1.4-7.4); Neutrophils % 59.8 % (38.7-73.9); Platelet Count 179 T/CUMM (130-400); Red Blood Count 4.16 MC/CUMM (3.8-5.5); Red Cell Distribution Width 12.2 % (9.3-17.3); White Blood Count 5.7 T/CUMM (4-12)
[2017-05-29 05:51] LABS: Calcium 7.9 MG/DL (8.5-10.1); Magnesium 1.8 MG/DL (1.8-2.4); Osmolality,Calculated 286.1 MOS/KG (273-304); Potassium 3.6 MMOL/L (3.5-5.1)
[2017-05-29] MEDS: oxyCODONE/ACETAMINOPHEN 5-325 MG TABLET PO PRN ×5 (10:10→23:32)
[2017-05-29] MEDS: PANTOPRAZOLE 40 MG TABLET PO SCH (10:11)
[2017-05-29] MEDS: ONDANSETRON 4 MG/2 ML VIAL IV PRN ×2 (10:11→17:56)
[2017-05-29] MEDS: DOCUSATE SODIUM 100 MG CAPSULE PO SCH ×2 (10:11→21:23)
[2017-05-29] MEDS: INSULIN REGULAR 100 UNIT/ML SUBCUT SCH ×4 (10:12→21:25)
[2017-05-29] MEDS: ENOXAPARIN 40 MG/0.4 ML SYRINGE SUBCUT SCH (10:12)
[2017-05-29] MEDS: SODIUM CHLORIDE 0.45% 1,000 ML IV SCH ×2 (10:18→17:46)
[2017-05-29] MEDS: ERTAPENEM 1,000 MG in SODIUM CHLORIDE 0.9% 50 ML IV SCH (17:43)
[2017-05-29] MEDS: ZALEPLON 5 MG CAPSULE PO PRN ×2 (21:23→23:32)
[2017-05-29] MEDS: INSULIN GLARGINE 100 UNIT/ML SUBCUT SCH (21:24)
[2017-05-30] MEDS: SODIUM CHLORIDE 0.45% 1,000 ML IV SCH ×2 (01:46→08:37)
[2017-05-30] MEDS: INSULIN REGULAR 100 UNIT/ML SUBCUT SCH ×2 (08:43→12:52)
[2017-05-30] MEDS: PANTOPRAZOLE 40 MG TABLET PO SCH (08:43)
[2017-05-30] MEDS: ENOXAPARIN 40 MG/0.4 ML SYRINGE SUBCUT SCH (08:43)
[2017-05-30] MEDS: DOCUSATE SODIUM 100 MG CAPSULE PO SCH (08:43)
[2017-05-30] MEDS: ERTAPENEM 1,000 MG in SODIUM CHLORIDE 0.9% 50 ML IV SCH (15:38)
[2017-05-30 16:51] VITALS: BP 178/96
== END 2017-05-30 17:10 | disposition home or self-care (01) | DRG 694 ==
LOC: N.ED 17:34 → N.EDINP 22:36 → SUATTDRO 22:36 → N.5E 23:40
PROVIDERS: ADMIT Internal Medicine; ATTEND Internal Medicine

== ENCOUNTER 2017-09-15 05:54 | Inpatient (IN) ==
[2017-09-05 12:35] LABS: Apearance,Urine Slightly Hazy (Clear); Bilirubin,Urine Negative (Negative); Blood, Urine Negative (Negative); Glucose,Urine (UA) >=500 mg/dL (Negative); Ketones,Urine Negative (Negative); Nitrite,Urine Negative (Negative); Protein,Urine Negative; RBC,Urine 10 /HPF (0-4); Squamous Epithelial Cell,Urine Occasional /HPF (0-10); Urine Color Yellow (Yellow); Urine Specific Gravity 1.025 (1.001-1.035); Urine Urobilinogen < 2.0 EU/DL (0.2-1.0); WBC,Urine 77 /HPF (0-6)
[2017-09-05 12:35] LABS: Basophils # 0.1 10*3/uL (0.0-0.2); Basophils % 0.8 % (0.0-0.8); Eosinophils # 0.2 10*3/uL (0.0-0.87); Eosinophils % 2.5 % (0.00-10.9); Hematocrit 43.2 VOL% (35.7-47.0); Hemoglobin 14.9 GM/DL (12.0-16.0); Immature Granulocytes % 0.3 %; Immature Granulocytes Absolute 0.02 #; Lymphocytes # 2.5 10*3/uL (1.4-4.0); Mean Corpuscular HGB Conc 34.5 GM/DL (32-36); Mean Corpuscular Hemoglobin 29 PG (27-34); Mean Corpuscular Volume 85.2 FL (87-102); Mean Platelet Volume 11.9 FL (9.6-12.0); Monocytes # 0.5 10*3/uL (0.11-0.8); Monocytes % 6.8 % (1.7-12.7); Neutrophils % 55.6 % (38.7-73.9); Platelet Count 172 T/CUMM (130-400); Red Blood Count 5.07 MC/CUMM (3.8-5.5); Red Cell Distribution Width 12.4 % (9.3-17.3); White Blood Count 7.2 T/CUMM (4-12)
[2017-09-05 13:04] LABS: Calcium 8.7 MG/DL (8.5-10.1); Potassium 3.7 MMOL/L (3.5-5.1)
[2017-09-15] MEDS ORDERED: LEVOFLOXACIN INJ 100 ML IV ONE (05:59)
[2017-09-15] MEDS ORDERED: LEVOFLOXACIN INJ 500 MG in PREMIX 1 EACH IV ONE (06:00)
[2017-09-15] MEDS ORDERED: FAMOTIDINE 20 MG TABLET PO ONE (06:21)
[2017-09-15] MEDS ORDERED: DIAZEPAM 5 MG TABLET PO ONE (06:21)
[2017-09-15] MEDS: LACTATED RINGERS 1,000 ML IV SCH (06:22)
[2017-09-15] MEDS ORDERED: FAMOTIDINE 20 MG TABLET ONE (06:42)
[2017-09-15] MEDS ORDERED: DIAZEPAM 5 MG TABLET ONE (06:42)
[2017-09-15] MEDS ORDERED: NEOSTIGMINE 10 MG/10 ML VIAL ONE ×2 (09:00→12:06)
[2017-09-15] MEDS ORDERED: MIDAZOLAM 2 MG/2 ML VIAL ONE (09:11)
[2017-09-15] MEDS ORDERED: CYCLOBENZAPRINE 10 MG TABLET PO PRN (10:52)
[2017-09-15] MEDS ORDERED: oxyCODONE/ACETAMINOPHEN 5-325 MG TABLET PO PRN (11:09)
[2017-09-15 11:27] LABS: Apearance,Urine CLEAR (Clear); Bilirubin,Urine Negative (Negative); Blood, Urine Negative (Negative); Glucose,Urine (UA) >=500 mg/dL (Negative); Hyaline Casts,Urine 3 /LPF (0-3); Ketones,Urine Negative (Negative); Mucus,Urine Occasional /LPF (Occasional); Nitrite,Urine Negative (Negative); Protein,Urine Negative; RBC,Urine 1 /HPF (0-4); Urine Color Straw (Yellow); Urine Specific Gravity 1.021 (1.001-1.035); Urine Urobilinogen < 2.0 EU/DL (0.2-1.0); WBC,Urine <1 /HPF (0-6)
[2017-09-15] MEDS ORDERED: ONDANSETRON 4 MG/2 ML VIAL ONE ×2 (11:28→12:06)
[2017-09-15] MEDS ORDERED: ONDANSETRON 4 MG/2 ML VIAL IV PRN ×2 (11:39→18:35)
[2017-09-15] MEDS: HYDROmorphone 2 MG/1 ML VIAL IV PRN ×3 (11:42→15:12)
[2017-09-15] MEDS ORDERED: fentaNYL 100 MCG/2 ML VIAL ONE (12:02)
[2017-09-15] MEDS ORDERED: SEVOFLURANE 1 UNIT/15 MINUTE INH ONE (12:04)
[2017-09-15] MEDS ORDERED: LACTATED RINGERS 2,000 ML IV ONE (12:04)
[2017-09-15] MEDS ORDERED: PROPOFOL 200 MG/20 ML VIAL IV ONE (12:05)
[2017-09-15] MEDS ORDERED: ROCURONIUM 100 MG/10 ML VIAL IV ONE (12:06)
[2017-09-15] MEDS ORDERED: GLYCOPYRROLATE 0.4 MG/2 ML VIAL ONE (12:06)
[2017-09-15] MEDS ORDERED: hydrALAZINE 20 MG/1 ML VIAL ONE (12:07)
[2017-09-15] MEDS ORDERED: LABETALOL 20 MG/4 ML SYRINGE IV ONE (12:07)
[2017-09-15] MEDS ORDERED: PROMETHAZINE 25 MG/1 ML VIAL ONE (12:55)
[2017-09-15] MEDS ORDERED: PROMETHAZINE INJ 6.25 MG in SODIUM CHLORIDE 0.9% 50 ML IV ONE (13:01)
[2017-09-15] MEDS ORDERED: GLUCAGON 1 MG VIAL IM PRN (14:51)
[2017-09-15] MEDS ORDERED: DEXTROSE 50% 25 GM/50 ML VIAL IV PRN (14:51)
[2017-09-15] MEDS: MEPERIDINE 50 MG/1 ML VIAL IM PRN (18:45)
[2017-09-15] MEDS: PROMETHAZINE 25 MG/1 ML VIAL IM PRN (20:02)
[2017-09-15] MEDS: SODIUM CHLORIDE 0.45% 1,000 ML IV SCH (21:16)
[2017-09-15] MEDS: INSULIN REGULAR 100 UNIT/ML SUBCUT SCH (21:16)
[2017-09-15] MEDS: traZODone 50 MG TABLET PO SCH (21:16)
[2017-09-15] MEDS: METOPROLOL SUCCINATE XL 50 MG TABLET PO SCH (21:16)
[2017-09-16] MEDS: PROMETHAZINE 25 MG/1 ML VIAL IM PRN ×3 (01:55→21:05)
[2017-09-16] MEDS: MEPERIDINE 50 MG/1 ML VIAL IM PRN ×2 (01:55→08:36)
[2017-09-16] MEDS: CHLORTHALIDONE 25 MG TABLET PO SCH (08:38)
[2017-09-16] MEDS: glipiZIDE 5 MG TABLET PO SCH (08:38)
[2017-09-16] MEDS: LACTATED RINGERS 1,000 ML IV SCH (08:42)
[2017-09-16] MEDS: SODIUM CHLORIDE 0.45% 1,000 ML IV SCH ×2 (08:44→16:53)
[2017-09-16] MEDS: INSULIN REGULAR 100 UNIT/ML SUBCUT SCH ×4 (08:55→21:00)
[2017-09-16] MEDS: oxyCODONE/ACETAMINOPHEN 5-325 MG TABLET PO PRN ×3 (15:23→21:04)
[2017-09-16] MEDS: METOPROLOL SUCCINATE XL 50 MG TABLET PO SCH (21:00)
[2017-09-16] MEDS: traZODone 50 MG TABLET PO SCH (21:00)
[2017-09-17] MEDS: SODIUM CHLORIDE 0.45% 1,000 ML IV SCH (00:11)
[2017-09-17] MEDS: INSULIN REGULAR 100 UNIT/ML SUBCUT SCH (08:50)
[2017-09-17] MEDS: CHLORTHALIDONE 25 MG TABLET PO SCH (08:50)
[2017-09-17] MEDS: glipiZIDE 5 MG TABLET PO SCH (08:50)
[2017-09-17 10:02] VITALS: BP 117/67
[2017-09-17] MEDS: oxyCODONE/ACETAMINOPHEN 5-325 MG TABLET PO PRN ×2 (11:33→13:00)
[2017-09-20 23:01] LABS: Stone Source Kidney
== END 2017-09-17 14:05 | disposition home or self-care (01) | DRG 660 ==
LOC: N.RAD 05:54 → N.SDSINP 05:58 → N.5E 14:08
PROVIDERS: ADMIT Urology; ATTEND Radiology Diagnostic Radiology